=== PATIENT | female | born 1965 | race Caucasian/White ===

== ENCOUNTER → 2024-07-16 | Day surgery (SDC) | payer MEDICAID ==
[~2024-07-16] VITALS: Ht 152.4 cm; Wt 72.6 kg
[~2024-07-16] MED LIST: DEXAMETHASONE 4MG/ML 1ML VIAL ONE; ETOMIDATE 2MG/ML 10ML VIAL IV ONE; FENTANYL CITRATE/PF 50MCG/ML 5ML VIAL ONE; LABETALOL 5MG/ML 4ML INJ IV PRN; LIDOCAINE HCL/EPINEPHRINE 1%-EPI 1:100,000 20ML VIAL ONE; MEPERIDINE HCL/PF 25MG/ML CPJ IV PRN; MIDAZOLAM HCL 2 MG/2 ML VIAL ONE; OMEG100016 PO; OMEP20CA14 PO; ONDANSETRON HCL 4MG/2ML INJ IV PRN; ONDANSETRON HCL 4MG/2ML INJ ONE; POLYMYXIN B SULFATE 500000 UNITS/VIAL ONE; PROPOFOL 200MG/20ML VIAL IV ONE; ROCURONIUM BROMIDE 10MG/ML VIAL 5ML IV ONE; ROPIVACAINE HCL 1% 20 ML VIAL EPI ONE; SUGAMMADEX SODIUM 200MG/2ML VIAL IV ONE; TRANEXAMIC ACID 1000MG PREMIX 100 ML IV ONE; VANCOMYCIN HCL 1GM VIAL ONE
[2024-07-16 07:35] LABS: CHLORIDE 111 mEq/L (98-107); SODIUM 144 mEq/L (136-145)
[2024-07-16 07:36] LABS: CALCIUM 9.7 mg/dL (8.7-10.4); CARBON DIOXIDE 24 mEq/L (21-32)
[2024-07-16 07:41] LABS: CREATININE 0.7 mg/dL (0.6-1.0); GLUCOSE 121 mg/dL (70-105); UREA NITROGEN BLOOD 11 mg/dL (9-23)
[2024-07-16 08:02] LABS: BASOPHILS % 0.7 % (0.0-2.0); EOSINOPHILS % 5.2 % (0.0-5.0); HEMATOCRIT. 45.5 % (36.0-48.0); HEMOGLOBIN. 15.6 g/dL (12.0-16.0); LYMPHOCYTES % 30.4 % (20.0-50.0); MEAN CORPUSCULAR HEMOGLOBIN 32.8 pg (28.0-32.0); MEAN CORPUSCULAR HGB CONC 34.4 g/dL (31.0-37.0); MEAN CORPUSCULAR VOLUME 95.6 fL (81.0-99.0); MEAN PLATELET VOLUME 9.6 fl (7.4-10.4); MONOCYTES % 6.3 % (2.0-8.0); NEUTROPHILS % 57.4 % (40.0-76.0); PLATELET 290 x1000/uL (130-400); RED BLOOD CELL COUNT 4.76 mill/uL (4.2-5.4); RED CELL DISTRIBUTION WIDTH 12.7 % (11.6-14.6); WHITE BLOOD COUNT 9.2 x1000/uL (4.5-11.0)
[2024-07-16] MEDS: LACTATED RINGERS 1,000 ML IV SCH (08:02)
[2024-07-16] MEDS: HYDROMORPHONE HCL/PF 1MG/ML INJ IV PRN (11:12)
[2024-07-16 12:21] VITALS: BP 148/89; PULSE 72; RESP 20
== END | disposition home or self-care (01) ==
LOC: OR 06:56
PROVIDERS: ATTEND Orthopaedic Surgery
DX: M75.101 Unspecified rotator cuff tear or rupture of right shoulder, not specified as traumatic (principal); M19.011 Primary osteoarthritis, right shoulder; M25.811 Other specified joint disorders, right shoulder; M65.911 Unspecified synovitis and tenosynovitis, right shoulder; M75.21 Bicipital tendinitis, right shoulder; M25.511 Pain in right shoulder; Z79.899 Other long term (current) drug therapy; Z98.890 Other specified postprocedural states
CPT/HCPCS: 29827; 29824; 80048; 85025; 36415; 71045; 93005; 29826; J3010; J1100; J3490 ×3; J2004; J2250; J2405; J2704; J2795; J3370; J1171; C1713